=== PATIENT | male | born 1940 | race Caucasian/White ===

== ENCOUNTER 2023-01-22 10:33 | Outpatient (CLI) | payer MEDICARE | END 2023-01-22 10:34 | disposition home or self-care (01) | LOC: CSHCP 10:33 | PROVIDERS: ATTEND Internal Medicine | DX: J96.11 Chronic respiratory failure with hypoxia (principal); J44.9 Chronic obstructive pulmonary disease, unspecified | CPT/HCPCS: 94060; 94726; 94729; 94760 ==